=== PATIENT | female | born 1980 | race African-American/Black ===

== ENCOUNTER 2018-09-09 03:08 | Emergency (ER) | payer MEDICAID ==
[~2018-09-09] VITALS: Ht 172.7 cm; Wt 113.0 kg
[2018-09-09] MEDS ORDERED: VISCOUS LIDOCAINE 2% 15 ML UDC MM PRN (10:00)
[2018-09-09 12:40] VITALS: BP 127/81
== END 2018-09-09 12:41 | disposition home or self-care (01) ==
LOC: ER 03:08
DX: J02.9 Acute pharyngitis, unspecified (principal); I10 Essential (primary) hypertension
CPT/HCPCS: 87070; 87430; 99284

== ENCOUNTER 2019-03-21 01:59 | Emergency (ER) | payer MEDICAID ==
[~2019-03-21] VITALS: Ht 175.3 cm; Wt 101.0 kg
[2019-03-21] MEDS ORDERED: KETOROLAC 60MG/2ML VIAL IM ONE (04:15)
[2019-03-21 04:36] VITALS: BP 128/81
== END 2019-03-21 04:40 | disposition home or self-care (01) ==
LOC: ER 01:59
DX: M54.5 Low back pain (principal); M79.662 Pain in left lower leg; F17.200 Nicotine dependence, unspecified, uncomplicated; F12.10 Cannabis abuse, uncomplicated; V89.2XXA Person injured in unspecified motor-vehicle accident, traffic, initial encounter; Y93.89 Activity, other specified; Y92.89 Other specified places as the place of occurrence of the external cause; Y99.8 Other external cause status
CPT/HCPCS: 81025; 96372; 99283; J1885